=== PATIENT | male | born 1985 | race Caucasian/White ===

== ENCOUNTER 2023-02-18 23:50 | Emergency (ER) | payer OTHER | END 2023-02-19 00:52 | disposition home or self-care (01) | LOC: NAV ERS 23:50 | DX: E16.2 Hypoglycemia, unspecified (principal); F17.210 Nicotine dependence, cigarettes, uncomplicated; Z86.73 Personal history of transient ischemic attack (TIA), and cerebral infarction without residual deficits | CPT/HCPCS: 36416; 99283 ==